=== PATIENT | male | born 1935 | race Caucasian/White ===

== ENCOUNTER 2018-07-25 17:09 | Emergency (ER) | payer OTHER ==
[~2018-07-25] VITALS: Ht 182.9 cm; Wt 90.7 kg
[~2018-07-25 17:09] MED LIST: AMLO10 PO; ASPI81CH; ATEN25; ATOR10 PO; CARV6.25; CARV6.25 PO; CLOP75 PO; DILT120 PO; ELIQUIS2.5 MG PO; FENO54; FERR325 PO; FURO20; FURO40 PO; GLIP10ER; HYDR10 PO; ISODIN10 PO; LOSA50 PO; METF500; METF500 PO; METO50 PO; NITR.4SL; Norco 5-325 Ta1 EACH PO; Omeprazole20 M1 PO; POTCHL10ER; SIMV80 PO; SPIR25 PO; TELM80; Valtrex1000 MG PO
[2018-07-25 17:38] LABS: BASOPHILS ABSOLUTE AUTO 0.07 K/mm3 (0.00-0.23); BASOPHILS PERCENT AUTO 1 % (0-2); EOSINOPHILS ABSOLUTE AUTO 0.65 K/mm3 (0.00-0.68); EOSINOPHILS PERCENT AUTO 9 % (0-6); Hematocrit 44.6 % (37.0-53.0); Hemoglobin 15.2 g/dL (13.5-17.5); IMMATURE GRAN ABSOLUTE AUTO 0.06 K/mm3 (0.00-0.10); IMMATURE GRAN PERCENT AUTO 1 % (0-1); LYMPHOCYTES ABSOLUTE AUTO 1.91 K/mm3 (0.84-5.20); LYMPHOCYTES PERCENT AUTO 26 % (21-46); MONOCYTES ABSOLUTE AUTO 0.42 K/mm3 (0.16-1.47); MONOCYTES PERCENT AUTO 6 % (4-13); Mean Corpuscular HGB 32.8 pg (26.0-34.0); Mean Corpuscular HGB Conc 34.1 g/dL (31.5-36.5); Mean Corpuscular Volume 96 fL (80-100); Mean Platelet Volume 10.4 fL (9.1-12.4); NEUTROPHILS ABSOLUTE AUTO 4.31 K/mm3 (1.96-9.15); NEUTROPHILS PERCENT AUTO 58 % (41-73); Platelet Count 166 K/mm3 (150-400); RDW Coefficient Variation 13.1 % (11.7-14.2); RDW Standard Deviation 46.5 fL (35.1-46.3); Red Blood Cell Count 4.64 M/mm3 (4.30-5.90); White Blood Cell Count 7.42 K/mm3 (4.00-11.30)
[2018-07-25 17:56] LABS: Albumin, Blood 3.6 g/dL (3.4-5.0); Bilirubin, Total 0.5 mg/dL (0.1-1.0); Bun/Creatinine Ratio 22.6 (12.0-20.0); Calcium, Blood 9.2 mg/dL (8.5-10.1); Creatinine, Blood 2.39 mg/dL (0.60-1.20); Globulin, Blood 3.5 g/dL (2.2-4.0); Potassium, Blood 4.3 mmol/L (3.5-5.5); Total Protein, Blood 7.1 g/dL (6.4-8.2)
[2018-07-25] MEDS ORDERED: GABA300 PO (19:17)
[2018-07-25] MEDS ORDERED: INSU100I6 (19:18)
[2018-07-25] MEDS ORDERED: ISODIN10 PO (19:19)
[2018-07-25] MEDS ORDERED: HEARTBURN RELI150 MG PO (19:20)
[2018-07-25] MEDS ORDERED: LIDO700A20 TOP (21:28)
== END 2018-07-25 22:04 | disposition home or self-care (01) ==
LOC: ER 17:09
PROVIDERS: Emergency Medicine
DX: E11.22 Type 2 diabetes mellitus with diabetic chronic kidney disease (principal); N18.9 Chronic kidney disease, unspecified; Z79.899 Other long term (current) drug therapy; I50.9 Heart failure, unspecified; F17.210 Nicotine dependence, cigarettes, uncomplicated
CPT/HCPCS: 36415; 74176; 80053; 83690; 85025; 96361; 96374; 96375; 99284-25; J2270; J2405; J7030

== ENCOUNTER 2018-12-25 11:00 | Emergency (ER) | payer OTHER ==
[~2018-12-25] VITALS: Ht 177.8 cm; Wt 90.7 kg
[~2018-12-25 11:00] MED LIST changes: -FERR325 PO; +FERSU300 PO; +GABA300 PO; +HEARTBURN RELI150 MG PO; +LIDO700A20 TOP; +NOVOLOG FL100 UNIT/1 SC
[2018-12-25 11:31] LABS: BASOPHILS ABSOLUTE AUTO 0.09 K/mm3 (0.00-0.23); BASOPHILS PERCENT AUTO 1 % (0-2); EOSINOPHILS ABSOLUTE AUTO 0.81 K/mm3 (0.00-0.68); EOSINOPHILS PERCENT AUTO 11 % (0-6); Hematocrit 41.1 % (37.0-53.0); Hemoglobin 13.7 g/dL (13.5-17.5); IMMATURE GRAN ABSOLUTE AUTO 0.08 K/mm3 (0.00-0.10); IMMATURE GRAN PERCENT AUTO 1 % (0-1); LYMPHOCYTES ABSOLUTE AUTO 1.77 K/mm3 (0.84-5.20); LYMPHOCYTES PERCENT AUTO 24 % (21-46); MONOCYTES PERCENT AUTO 8 % (4-13); Mean Corpuscular HGB 32.2 pg (26.0-34.0); Mean Corpuscular HGB Conc 33.3 g/dL (31.5-36.5); Mean Corpuscular Volume 97 fL (80-100); Mean Platelet Volume 10.7 fL (9.1-12.4); NEUTROPHILS ABSOLUTE AUTO 4.15 K/mm3 (1.96-9.15); NEUTROPHILS PERCENT AUTO 55 % (41-73); Platelet Count 165 K/mm3 (150-400); RDW Coefficient Variation 13.8 % (11.7-14.2); RDW Standard Deviation 48.6 fL (35.1-46.3); Red Blood Cell Count 4.26 M/mm3 (4.30-5.90)
[2018-12-25 11:50] LABS: Albumin, Blood 3.3 g/dL (3.4-5.0); Albumin/Globulin Ratio 0.9 (0.8-1.8); Bilirubin, Total 0.7 mg/dL (0.1-1.0); Bun/Creatinine Ratio 16.2 (12.0-20.0); Calcium, Blood 8.6 mg/dL (8.5-10.1); Creatinine, Blood 2.16 mg/dL (0.60-1.20); Globulin, Blood 3.5 g/dL (2.2-4.0); Potassium, Blood 4.5 mmol/L (3.5-5.5); Total Protein, Blood 6.8 g/dL (6.4-8.2)
[2018-12-25] MEDS ORDERED: ASPI81CH PO (13:01)
[2018-12-25] MEDS ORDERED: Vitamin D2000 UNIT PO (13:04)
[2018-12-25] MEDS ORDERED: INSULANPEN SC (13:07)
== END 2018-12-25 13:51 | disposition home or self-care (01) ==
LOC: ER 11:00
PROVIDERS: Emergency Medicine
DX: R55 Syncope and collapse (principal); E86.0 Dehydration; Z88.8 Allergy status to other drugs, medicaments and biological substances; Z79.899 Other long term (current) drug therapy; Z79.4 Long term (current) use of insulin; Z79.82 Long term (current) use of aspirin; I50.9 Heart failure, unspecified; J44.9 Chronic obstructive pulmonary disease, unspecified; E11.22 Type 2 diabetes mellitus with diabetic chronic kidney disease; N18.9 Chronic kidney disease, unspecified; F17.210 Nicotine dependence, cigarettes, uncomplicated
CPT/HCPCS: 80053; 85025; 93005; 93010; 99284-25

== ENCOUNTER 2019-06-16 07:08 | Emergency (ER) | payer OTHER ==
[~2019-06-16] VITALS: Ht 177.8 cm; Wt 90.7 kg
[~2019-06-16 07:08] MED LIST changes: +ASPI81CH PO; +INSULANPEN SC; +Vitamin D2000 UNIT PO
[2019-06-16 07:40] LABS: BASOPHILS ABSOLUTE AUTO 0.07 K/mm3 (0.00-0.23); BASOPHILS PERCENT AUTO 1 % (0-2); EOSINOPHILS ABSOLUTE AUTO 0.56 K/mm3 (0.00-0.68); EOSINOPHILS PERCENT AUTO 6 % (0-6); Hematocrit 40.5 % (37.0-53.0); Hemoglobin 13.5 g/dL (13.5-17.5); IMMATURE GRAN ABSOLUTE AUTO 0.04 K/mm3 (0.00-0.10); IMMATURE GRAN PERCENT AUTO 0 % (0-1); LYMPHOCYTES ABSOLUTE AUTO 1.91 K/mm3 (0.84-5.20); LYMPHOCYTES PERCENT AUTO 21 % (21-46); MONOCYTES ABSOLUTE AUTO 0.76 K/mm3 (0.16-1.47); MONOCYTES PERCENT AUTO 9 % (4-13); Mean Corpuscular HGB 32.2 pg (26.0-34.0); Mean Corpuscular HGB Conc 33.3 g/dL (31.5-36.5); Mean Corpuscular Volume 97 fL (80-100); Mean Platelet Volume 10.5 fL (9.1-12.4); NEUTROPHILS ABSOLUTE AUTO 5.64 K/mm3 (1.96-9.15); NEUTROPHILS PERCENT AUTO 63 % (41-73); Platelet Count 187 K/mm3 (150-400); RDW Coefficient Variation 13.1 % (11.7-14.2); RDW Standard Deviation 46.9 fL (35.1-46.3); Red Blood Cell Count 4.19 M/mm3 (4.30-5.90); White Blood Cell Count 8.98 K/mm3 (4.00-11.30)
[2019-06-16] MEDS ORDERED: PRAV20 PO (07:44)
[2019-06-16 08:03] LABS: Alanine Aminotransfer (ALT/SGP 17 U/L (12-78); Albumin, Blood 3.3 g/dL (3.4-5.0); Albumin/Globulin Ratio 0.9 (0.8-1.8); Alk Phos 64 U/L (50-136); Anion Gap 7 mmol/L (6-16); Aspartate Aminotrans (AST/SGOT 7 U/L (12-37); Bilirubin, Total 0.5 mg/dL (0.1-1.0); Blood Urea Nitrogen 41 mg/dL (8-24); CO2, Blood 24 mmol/L (21-32); Calcium, Blood 8.7 mg/dL (8.5-10.1); Chloride, Blood 106 mmol/L (98-108); Creatinine, Blood 2.05 mg/dL (0.60-1.20); Globulin, Blood 3.6 g/dL (2.2-4.0); Glomerular Filtration Rate 33 (60-); Glucose, Blood 357 mg/dL (70-99); Potassium, Blood 4.3 mmol/L (3.5-5.5); Sodium, Blood 137 mmol/L (136-145); Total Protein, Blood 6.9 g/dL (6.4-8.2); Troponin I <0.015 ng/mL (0.000-0.040)
[2019-06-16] MEDS ORDERED: BENZ100A PO (08:24)
[2019-06-16] MEDS ORDERED: Prednisone20 MG PO (08:24)
[2019-06-16] MEDS ORDERED: ALBU90OI INH (08:24)
== END 2019-06-16 09:00 | disposition home or self-care (01) ==
LOC: ER 07:08
PROVIDERS: Emergency Medicine
DX: J44.1 Chronic obstructive pulmonary disease with (acute) exacerbation (principal); E11.65 Type 2 diabetes mellitus with hyperglycemia; E11.22 Type 2 diabetes mellitus with diabetic chronic kidney disease; I13.0 Hypertensive heart and chronic kidney disease with heart failure and stage 1 through stage 4 chronic kidney disease, or unspecified chronic kidney disease; N18.9 Chronic kidney disease, unspecified; I50.9 Heart failure, unspecified; Z79.899 Other long term (current) drug therapy; Z88.8 Allergy status to other drugs, medicaments and biological substances; Z79.82 Long term (current) use of aspirin; F17.210 Nicotine dependence, cigarettes, uncomplicated
CPT/HCPCS: 36415; 71046; 80053; 83880; 84484; 85025; 93005; 93010; 94640; 99284-25; J7512

== ENCOUNTER 2020-04-14 13:43 | Inpatient (IN) | payer OTHER ==
[~2020-04-14] VITALS: Ht 177.8 cm; Wt 89.6 kg
[~2020-04-14 13:43] MED LIST changes: +ALBU90OI INH; -ASPI81CH PO; +Aspirin EC81 MG PO; +BENZ100A PO; -HYDR10 PO; +HYDRA25 PO; -NOVOLOG FL100 UNIT/1 SC; +NOVOLOG FL100 UNIT/3 SC; +PRAV20 PO; +Prednisone20 MG PO
[2020-04-14 14:14] LABS: BASOPHILS ABSOLUTE AUTO 0.11 K/mm3 (0.00-0.23); BASOPHILS PERCENT AUTO 1 % (0-2); EOSINOPHILS ABSOLUTE AUTO 0.48 K/mm3 (0.00-0.68); EOSINOPHILS PERCENT AUTO 4 % (0-6); Hematocrit 40.7 % (37.0-53.0); Hemoglobin 12.9 g/dL (13.5-17.5); IMMATURE GRAN PERCENT AUTO 1 % (0-1); LYMPHOCYTES ABSOLUTE AUTO 3.96 K/mm3 (0.84-5.20); LYMPHOCYTES PERCENT AUTO 35 % (21-46); MONOCYTES ABSOLUTE AUTO 0.64 K/mm3 (0.16-1.47); MONOCYTES PERCENT AUTO 6 % (4-13); Mean Corpuscular HGB 31.8 pg (26.0-34.0); Mean Corpuscular HGB Conc 31.7 g/dL (31.5-36.5); Mean Corpuscular Volume 100 fL (80-100); Mean Platelet Volume 10.7 fL (9.1-12.4); NEUTROPHILS ABSOLUTE AUTO 6.07 K/mm3 (1.96-9.15); NEUTROPHILS PERCENT AUTO 53 % (41-73); Platelet Count 198 K/mm3 (150-400); RDW Coefficient Variation 14.5 % (11.7-14.2); RDW Standard Deviation 53.5 fL (35.1-46.3); Red Blood Cell Count 4.06 M/mm3 (4.30-5.90); White Blood Cell Count 11.36 K/mm3 (4.00-11.30)
[2020-04-14 14:29] LABS: Albumin, Blood 3.4 g/dL (3.4-5.0); Bilirubin, Total 0.4 mg/dL (0.1-1.0); Bun/Creatinine Ratio 19.5 (12.0-20.0); Creatinine, Blood 2.1 mg/dL (0.60-1.20); Globulin, Blood 3.3 g/dL (2.2-4.0); International Normalized Ratio 0.96; Magnesium, Blood 2.1 mg/dL (1.6-2.4); Potassium, Blood 4.4 mmol/L (3.5-5.5); Prothrombin Time Results 10.3 Sec (9.7-11.5); Total Protein, Blood 6.7 g/dL (6.4-8.2); Troponin I 0.486 ng/mL (0.000-0.040)
[2020-04-14] MEDS ORDERED: ASCO500 PO (14:31)
[2020-04-14] MEDS ORDERED: CLOBET30L TOP (14:32)
[2020-04-14] MEDS ORDERED: Vitamin B-121000 MCG PO (14:32)
[2020-04-14] MEDS ORDERED: Ranitidine HCl150 M1 PO (14:34)
[2020-04-14] MEDS ORDERED: STIOLTO RESPIMAT4 G1 INH (14:34)
[2020-04-14] MEDS ORDERED: TRAM50 PO (14:35)
[2020-04-14] MEDS ORDERED: FERROUS GLUCON324 M2 PO (14:36)
[2020-04-14] MEDS ORDERED: DOCU100 PO (14:42)
[2020-04-14] MEDS ORDERED: GABA300 PO (14:43)
[2020-04-14] MEDS ORDERED: PRAV20 PO (14:45)
[2020-04-14] MEDS ORDERED: ARTIFICIAL TEAR15 M2 BOTHEYES (14:46)
--- NOTE | 2020-04-14 20:13 | NUR ---
STAFF WAS TRANSFERING PATIENT OFF THE SENIOR DIGITAL DESIGNER TABLE THE PATIENT BECAME UNRESPONSIVE AND NOTED TO BE IN VT ON THE MONITOR. SHOCKED X 1 @ 200 JOULES AND CONVERTED BACK TO SINUS RHYTHM AND BECAME RESPONSIVE QUICKLY. CONTINUED TRANSFER TO THE ICU. NOTIFIED AND MET US IN THE ICU. ICU STAFF NOTIFIED WE WERE TRANSPORTING AND JUST SHOCKED VT RHYTHM. THEY MET US IN THE [place]. TRANSFER OF CARE OCCURED IN ICU#5.
--- NOTE | 2020-04-14 20:30 | NUR ---
ASSUMED PT CARE PT TO ICU ROOM 5 FROM JEWELRY SORTER VIA [facility] AT 1951. MULT STAFF AT BEDSIDE, RESP THERAPIST AT BEDSIDE, DR ROSALES TO ROOM WITH PT ALSO. [facility] SHOCKS TO CORRECT RHYTHM (SHOCK GIVEN BY [facility]ENTER STAFF EN ROUTE TO ICU, SHOCK GIVEN AT 1999 120J, SHOCK GIVEN AT 2007 181J, SHOCK GIVEN AT 2023 143J). PT REMAINED ALERT AND ORIENTED. LIDO STARTED AT 2009 AT 1MG/MIN, MAGNESIUM STARTED, HEPARIN CONTINUES AT 12UNITS/KG/HR, AMIO CONTINUES AT 1MG/HR. NEW 18G PLACED TO RIGHT HAND, 16FR TEMP PACHECO PLACED, FAMILY AT BEDSIDE FOR UPDATE. PT BP PER ART LINE. RHYTHM INCONSISTANT.
[2020-04-14 20:56] LABS: PCO2 Arterial 40.6 mmHg (35-45); PO2 Arterial 81.1 mmHg (80-100); pH Blood Arterial 7.29 (7.35-7.45)
[2020-04-14 21:23] LABS: Source, Urine Catheter
[2020-04-14 21:27] LABS: Appearance, Urine Clear (Clear); Bilirubin, Urine Neg (Neg); Blood, Urine 1+ (Neg); Color, Urine Yellow (P-Yellow); Glucose Qualitative, Urine 4+ (Neg); Ketones, Urine Neg (Neg); Leukocyte Esterase, Urine Neg (Neg); Nitrite, Urine Neg (Neg); Protein, Urine 2+ (Neg); Urobilinogen, Urine NORM (Normal)
[2020-04-14 21:37] LABS: Squamous Epithelial Cells Few /hpf (Few); White Blood Cells, Urine 0-2 /hpf (0-5)
[2020-04-14 21:38] LABS: Bacteria Mod /hpf
--- NOTE | 2020-04-14 21:50 | NUR ---
PHARMACY UPDATE DUE TO APTT BEING >139 PHARMACIST WANTS HEPARIN HELD FOR 1 HR AND ANOTHER APTT DRAWN AT 2250.
--- NOTE | 2020-04-15 00:05 | NUR ---
PROVIDER VISIT DR WELSH AT BEDSIDE FOR EVAL. PLAN TO CONTINUE MONITORING RESP EFFORTS, GET CHEST XRAY IN AM. NO ADDITION TO LABS MADE.
[2020-04-15 02:29] LABS: BASOPHILS ABSOLUTE AUTO 0.03 K/mm3 (0.00-0.23); BASOPHILS PERCENT AUTO 0 % (0-2); EOSINOPHILS PERCENT AUTO 0 % (0-6); Hematocrit 38.8 % (37.0-53.0); Hemoglobin 12.1 g/dL (13.5-17.5); IMMATURE GRAN ABSOLUTE AUTO 0.08 K/mm3 (0.00-0.10); IMMATURE GRAN PERCENT AUTO 1 % (0-1); LYMPHOCYTES ABSOLUTE AUTO 0.84 K/mm3 (0.84-5.20); LYMPHOCYTES PERCENT AUTO 5 % (21-46); MONOCYTES ABSOLUTE AUTO 1.28 K/mm3 (0.16-1.47); MONOCYTES PERCENT AUTO 7 % (4-13); Mean Corpuscular HGB 31.3 pg (26.0-34.0); Mean Corpuscular HGB Conc 31.2 g/dL (31.5-36.5); Mean Corpuscular Volume 101 fL (80-100); Mean Platelet Volume 10.7 fL (9.1-12.4); NEUTROPHILS ABSOLUTE AUTO 15.18 K/mm3 (1.96-9.15); NEUTROPHILS PERCENT AUTO 87 % (41-73); Platelet Count 196 K/mm3 (150-400); RDW Coefficient Variation 14.8 % (11.7-14.2); RDW Standard Deviation 55.5 fL (35.1-46.3); Red Blood Cell Count 3.86 M/mm3 (4.30-5.90); White Blood Cell Count 17.41 K/mm3 (4.00-11.30)
[2020-04-15 03:00] LABS: Albumin, Blood 3.4 g/dL (3.4-5.0); Bilirubin, Total 0.8 mg/dL (0.1-1.0); Bun/Creatinine Ratio 18.8 (12.0-20.0); Calcium, Blood 8.9 mg/dL (8.5-10.1); Creatinine, Blood 2.45 mg/dL (0.60-1.20); Globulin, Blood 3.3 g/dL (2.2-4.0); Magnesium, Blood 3.1 mg/dL (1.6-2.4); Potassium, Blood 5.9 mmol/L (3.5-5.5); Total Protein, Blood 6.7 g/dL (6.4-8.2)
[2020-04-15 03:04] LABS: Troponin I 4.98 ng/mL (0.000-0.040)
[2020-04-15 05:10] LABS: PCO2 Arterial 48.7 mmHg (35-45); PO2 Arterial 61.7 mmHg (80-100); pH Blood Arterial 7.29 (7.35-7.45)
--- NOTE | 2020-04-15 06:00 | NUR ---
UPDATE PT HAD ANOTHER EPISODE OF RUST COLORED EMESIS INTO CPAP MASK. RESP CALLED, PT COUGHING AND LUNG SOUNDS MORE COARSE. PLAN TO CALL DR WELSH FOR ELECTIVE INTUBATION.
--- NOTE | 2020-04-15 06:45 | NUR ---
UPDATE DR WELSH, RESP THERAPIST AND MULT OTHER STAFF AT BEDSIDE FOR RSI.
--- NOTE | 2020-04-15 07:30 | NUR ---
SHIFT SUMMARY PT NOW SEDATED AND INTUBATED. DR KEATING USE BRONCHOSCOPE FOR INTUBATION DUE TO SMALL AIRWAY. PT GIVEN 4MG MIDOLAZAM, 80MG PROPOFOL PRIOR TO PROCEDURE. PT GIVEN ROCURONIUM 20MG AND A TOTAL OF 100MCG PHENYLEPHRINE. PT INTUBATED WITH 7.5, SECURED AT 23CM AT TEETH, POSITIVE COLOR CHANGE, BREATH SOUNDS WHEEZY AND COARSE, 16FR OG TUBE PLACED, STAT CHEST XRAY ORDERED. VERBAL ORDERS FOR LEVOPHED RECEIVED FROM DR WELSH. SATS >92%. INITIAL VENT SETTINGS 14/400/8/100. TEMP PROBE PACHECO DRAINING RUST COLORED URINE, PT AFEBRILE. ARTERIAL SHEATH TO RIGHT GROIN. SITE WNL, DRESSING REINFORCED DURING SHIFT. SKIN OVERALL INTACT, SKIN HAS CASA APPEARANCE. UPDATED ON CONDITION CHANGE. SHE WILL CALL TO UPDATE SON. BEDSIDE REPORT GIVEN TO CHRIS DIEGO.
--- NOTE | 2020-04-15 08:00 | NUR ---
ASSUMED CARE OF PT AT 0700. BEDSIDE REPORT FROM FRANK DIEGO. PT INTUBATED AT SHIFT CHANGE, SEE PREVIOUS RN NOTE. PT c 7.5 ETT, 23 AT LIP. VENT SETTINGS AC 14/450/8, CURRENTLY TITRATING FIO2 DOWN. LUNGS COARSE THROUGHOUT. RODRIGUEZ THICK SECRETIONS THROUGH ETT. PT PALE, COOL. PROPOFOL GTT STARTED AT 20 MCG/KG/MIN. LIDOCAINE GTT AT 2 MCG/MIN. SR c 1 DEGREE BLOCK, RATE 60-70'S. BP STABLE. RIGHT GROIN ARTERIAL SHEATH IN PLACE. DRESSING C/D/I. ATTEMPTED TO DOPPLER PEDAL PULSES, LEFT DORSAL PEDIS BY DOPPLER INTERMITTANTLY, UNABLE TO OBTAIN OTHER PEDAL PULSES. FEET COOL BILATERALLY, RIGHT FOOT DUSKY. WARM AT CALF. PACHECO IN PLACE, DRAINING TO GRAVITY, SMALL AMOUNT OF KARRI URINE c SEDIMENT OUT. WILL CONTINUE TO MONITOR.
[2020-04-15 08:28] LABS: Hematocrit 37.4 % (37.0-53.0); Hemoglobin 11.8 g/dL (13.5-17.5)
[2020-04-15 08:39] LABS: PCO2 Arterial 51.4 mmHg (35-45); PO2 Arterial 69.9 mmHg (80-100)
[2020-04-15 08:40] LABS: pH Blood Arterial 7.25 (7.35-7.45)
--- NOTE | 2020-04-15 09:30 | NUR ---
Pt resting in bed with his eyes closed and is intubated. Reviewed chart and discussed case with Bedside RN Yoon. Palliative Care will F/U when family arrives.
--- NOTE | 2020-04-15 11:25 | NUR ---
Echocardiogram completed
--- NOTE | 2020-04-15 11:30 | NUR ---
UPDATES CARDIOLOGY, LIDOCAINE GTT TO 1 MCG/MIN, SEE FLOW SHEET. REPEAT EKG AND RESULTS TO DR HERNÁNDEZ. TREND TROPONIN UNTIL TRENDING DOWN. ECHO COMPLETED, POOR EF -15%. SHEATH REMOVED, PRESSURE APPLIED. PLAN FOR REPEAT EKG AT 1800. NEPHROLOGY, TITRATE PRESSORS FOR MAP>75 FOR KIDNEY PERFUSION. 1L OF NS, LASIX 100 MG IV. TOOL RENTAL TECHNICIAN, CENTRAL LINE PLACED TO RIJ. CONTINUE LEVO GTT. REPEAT K. DR WELSH SPOKE c . CODE STATUS CHANGED TO DNR, NO ELECTRICITY.
[2020-04-15 13:43] LABS: Hematocrit 37.1 % (37.0-53.0); Hemoglobin 11.5 g/dL (13.5-17.5)
[2020-04-15 13:58] LABS: Potassium, Blood 5.9 mmol/L (3.5-5.5); Troponin I 5.79 ng/mL (0.000-0.040)
--- NOTE | 2020-04-15 15:22 | NUR ---
RHYTHM CHANGED NOTED. RATE 30'S c PVCS. EKG DONE, DR MCKEON NOTIFIED. INCREASED LIDOCAINE GTT TO 2 MCG/MIN, LEVOPHED 10 MCG/MIN. NO PERIPHERAL PULSES PALPABLE, CENTRAL PULSE BY DOPPLER. NOTIFIED.
--- NOTE | 2020-04-15 17:21 | NUR ---
SHIFT SUMMARY PT REMAINS INTUBATED AND SEDATED. VENT SETTINGS AC 14/450/8/40%. PROPOFOL GTT AT 35 MCG/KG/MIN. RASS -4. LEVOPHED GTT AT 12 MCG/MIN (TITRATED FOR MAP>75 FOR KIDNEY PERFUSION), LIDOCAINE 2 MCG/MIN. LR AT 200 ML/HR X 1 L. HYPOKALEMIC THIS SHIFT, MEDICATED ORDERED, REPEAT K 5.9, REDRAW AT 1999. CENTRAL LINE PLACE TO RIJ THIS SHIFT. RIGHT FEMORAL SHEATH REMOVED s COMPLICATIONS. RHYTHM CHANGE THIS SHIFT, SEE PREVIOUS NOTE AND EKG IN CHART. CENTRAL PULSES BY DOPPLER. NO PERIPHERAL PULSES PALPABLE. PT COOL, PALE. CODE STATUS CHANGED THIS SHIFT TO DNR, NO ELECTRICITY. DAUGHTER AT BEDSIDE. SPOKE c SIMBA FROM [facility] REGARDING COMFORT CARE. SONS FROM [place] CALLED TO CHECK ON PT. PLAN FOR THEM TO COME TOMORROW. REQUESTED THAT WE NOTIFY THEM c CHANGES IN PT STATUS. WILL CONTINUE TO MONITOR UNTIL REPORT TO ONCOMING NURSE.
--- NOTE | 2020-04-15 17:34 | NUR ---
Received call from Bedside RN Fabiana reporting daughter has arrived and would like to speak with Palliative Care. Pt resting in bed with eyes closed and is intubated. Daughter Leona at bedside. Listened as Leona expresses concerns that her dad (Pt) is suffering. Discussed the importance of family discussing Pt's wishes in his current condition. Leona states she does not think Pt would want his life prolonged and would want to focus on comfort and have a peaceful comfortable passing. Educated on comfort care philosophy with V/U made by Leona. She expresses concerns that Pt's son won't make it up from [place] in time. Leona reports plan to discuss goals of care further with Pt's spouse. Continued therapeutic listening and offered emotional support. Answered questions regarding the order of decision makers according to [place] statutes. Leona expresses appreciation of visit and reports no other concerns at this time. Palliative Care will remain available for supportive visits.
--- NOTE | 2020-04-15 19:30 | NUR ---
ASSUMED PT CARE BEDSIDE REPORT WITH CHRIS DIEGO. ASSUMED PT CARE. PT SEDATED AND INTUBATED. VENT SETTINGS AC14/450/8/40, SATS >90%. PT LUNG SOUNDS COARSE THROUGHOUT. PT HAS NEW CL TO RIGHT IJ, ALL MEDICATION INFUSIONS SWITCHED TO THIS ACCESS AT THIS TIME. PT HAS PROPOFOL INFUSING AT 35MCG/KG/MIN, LIDOCAINE INFUSING AT 2MG, LEVOPHED AT 12MCG/MIN, LR AT 200 (X1 BAG). SITE WNL, DRESSING C/D/I. PT STILL HAS PERIPHERAL IVS X3, 18G TI RIGHT HAND, 18G TO LEFT AC, 20G TO RIGHT AC. ALL SITES WNL. DRESSING TO LEFT AC CHANGED. BP STABLE ON LEVOPHED, WILL TITRATE APPROPRIATE. HR 60S 1ST DEGREE BLOCK. TEMP PROBE PACHECO DRAINING KARRI URINE, SEDIMENT NOTED. SKIN PALE, CASA TO LOWER EXTREMITIES. OG TO LIS, COFFEE GROUND SECRETIONS TO TUBE. SOFT WRIST RESTRAINTS SECURE. BED LOW. SEE FULL SHIFT ASSESSMENT.
[2020-04-15 19:36] LABS: Potassium, Blood 6.1 mmol/L (3.5-5.5)
[2020-04-15 22:40] LABS: Potassium, Blood 5.8 mmol/L (3.5-5.5)
[2020-04-16 02:23] LABS: Hematocrit 39.2 % (37.0-53.0); Mean Corpuscular HGB 31.2 pg (26.0-34.0); Mean Corpuscular HGB Conc 30.6 g/dL (31.5-36.5); Mean Corpuscular Volume 102 fL (80-100); Mean Platelet Volume 10.8 fL (9.1-12.4); NRBC ABSOLUTE 0.02 K/mm3 (0.00-0.02); NRBC Auto 0.1 /100 WBC (0.0-0.2); Platelet Count 217 K/mm3 (150-400); RDW Coefficient Variation 14.9 % (11.7-14.2); Red Blood Cell Count 3.85 M/mm3 (4.30-5.90); White Blood Cell Count 15.71 K/mm3 (4.00-11.30)
[2020-04-16 02:51] LABS: BAND PERCENT MAN 2 % (0-8); BASOPHILS PERCENT MAN 0 % (0-2); EOSINOPHILS PERCENT MAN 0 % (0-6); LYMPHOCYTES ABSOLUTE MAN 1.72 K/mm3 (0.84-5.20); LYMPHOCYTES PERCENT MAN 11 % (21-46); MONOCYTES ABSOLUTE MAN 1.57 K/mm3 (0.16-1.47); MONOCYTES PERCENT MAN 10 % (4-13); NEUTROPHILS ABSOLUTE MAN 12.41 K/mm3 (1.96-9.15); SEG NEUTROPHILS PERCENT MAN 77 % (41-73); TOTAL CELLS COUNTED 100
[2020-04-16 02:54] LABS: CPK Creatine Kinase 489 U/L (39-308); Magnesium, Blood 2.9 mg/dL (1.6-2.4); Uric Acid, Blood 10.3 mg/dL (3.5-7.2)
[2020-04-16 02:55] LABS: Anion Gap 7 mmol/L (6-16); Blood Urea Nitrogen 58 mg/dL (8-24); Bun/Creatinine Ratio 14.8 (12.0-20.0); CO2, Blood 24 mmol/L (21-32); Calcium, Blood 8.4 mg/dL (8.5-10.1); Chloride, Blood 104 mmol/L (98-108); Creatinine, Blood 3.93 mg/dL (0.60-1.20); Glomerular Filtration Rate 16 (60-); Glucose, Blood 367 mg/dL (70-99); Phosphorus, Blood 5.8 mg/dL (2.5-4.9); Potassium, Blood 5.5 mmol/L (3.5-5.5); Sodium, Blood 135 mmol/L (136-145)
--- NOTE | 2020-04-16 06:45 | NUR ---
SHIFT SUMMARY PT REMAINS SEDATED AND INTUBATED, VENT SETTINGS AC14/450/8/45%, SATS >90%. LUNG SOUNDS CONTINUE TO BE COARSE. SECRETIONS MINIMAL WITH SUCTIONING. OG TUBE TO LIS, DRAINAGE RUST COLORED WITH CLOTS. PT NOT ON ANY GI PREVENTION, WILL PASS ON TO DAYSHIFT TO ADDRESS WITH PROVIDER. PT BPS STABLE ON LEVO. CL TO RIGHT IJ WITH LEVOPHED INFUSING AT 16MCG, PROPOFOL INFUSING AT 35MCG, NS AT 10ML, LIDOCAINE INFUSING AT 2MG. PT HAS 18G TO LEFT AC, 18G TO RIGHT HAND AND 20G TO RIGHT AC. ALL SITES WNL, DRESSINGS C/D/I. TEMP PROBE PACHECO DRAINING SCANT KARRI COLORED URINE WITH SEDIMENT. PULSES PALPABLE TO BILATERAL WRISTS THIS AM, ABSENT TO RIGHT FOOT (PROVIDER AWARE), DOPPLER TO LEFT FOOT. PT GAG REFLEX PRESENT THIS AM, NOT SWALLOWING OR COUGHING. HR 60S 1ST DEGREE BLOCK WITH BIGEMNINY. TUBE ADVANCED TO 25CM AT TEETH DURING SHIFT BY RESP THERAPIST. SOFT WRIST RESTRAINTS SECURE. HOB ELEVATED. WILL REPORT TO ONCOMING RN.
--- NOTE | 2020-04-16 08:17 | NUR ---
ASSUMED CARE OF PT AT 0700 THIS AM. PT SEDATED ON PROPOFOL AT 35MCG FOR MECH VENT. LEVOPHED AT 16MCG TO KEEP MAP BETWEEN 70-75; WHICH IT IS. LIDOCAINE GTT AT 2MCG. PT IN BIGEMINY RHTHYM W RATE 70'S. PT BRETHING OVER VENT AT 17, NO COUGH, GAG, OR SWALLOW NOTED. PT NOT RESPONDING TO PAIN; WILL TITRATE PROPOFOL DOWN TOLERATED. DR AUSTIN AT BEDSIDE THIS AM. ABSENT PULSE TO RIGHT DP/TP. DOPPLER TO RIGHT POP. DOPPLER TO LEFT DP. DR AUSTIN AWARE OF ABSENT PULSE. 0800 DR HURLEY AT BEDSIDE; COMPLETE UPDATE GIVEN. SCANT PINK FLUID TO OGT. H&H STABLE; PLAVIX AND ASA ORDERED FOR TODAY. TROPONIN DRAWN.
--- NOTE | 2020-04-16 09:32 | NUR ---
DOPPLER COMPLETED. PRELIM; STENOSIS ABOVE RIGHT POP W SOME SMALL FLOW TO FOOT. PROPOFOL DECREASED TO 35MCG. 100CC OLD BLOOD SUCTIONED FROM OGT. PT'S SON ANI GIVEN UPDATE; HE IS ON HIS WAY FROM [place] WITH HIS BROTHER.
--- NOTE | 2020-04-16 09:44 | NUR ---
TROPONIN 7.910. PT HAS 150CC GASTRIC FLUID W OLD BLOOD; DR MOON NOTIFIED. WILL HOLD PLAVIX AND ASA FOR NOW AND CHECK WITH CARDIOLOGY TODAY.
--- NOTE | 2020-04-16 10:26 | NUR ---
DR MOON AT BEDSIDE. PT TO RECEIVE PLAVIX AND ASA DR CORONADO. LEVOPHED TO BE TITRATED FOR A GOAL MAP 60-65. LEVOPHED DECREASED TO 16MCG FROM 18MCG.
--- NOTE | 2020-04-16 11:09 | NUR ---
PT'S AND DAUGHTER AT BEDSIDE. BOTH FAMILY MEMBERS REQUEST THAT PT BE REMOVED FROM LIFE [employer]. PALLIATIVE CARE CALLED AND IS AT BEDSIDE FOR SUPPORTIVE CARE. DR MOON TO BE NOTIFIED.
--- NOTE | 2020-04-16 11:49 | NUR ---
DR MOON UPDATED; COMFORT CARE ORDERED. ORDERS PLACED TO EXTUBATE PT WHEN FAMILY READY. FAMILY REQUESTING THAT PT BE EXTUBATED NOW. PT'S SON'S CALLED TO GIVE UPDATE; NO ANSWER. PASTEROL CARE AND PALIATIVE CARE AT BEDSIDE.
--- NOTE | 2020-04-16 12:01 | NUR ---
PT EXTUBATED AT 1154. LEVOPHED AND LIDOCAINE TURNED OFF SHORTLY AFTER. DAUGHTER AT BEDSIDE W PASTORAL CARE AND PALIATIVE CARE.
--- NOTE | 2020-04-16 12:09 | NUR ---
PT AT 1205. DAUGHTER AT BEDSIDE W PASTORAL CARE AND PALLIATIVE CARE.
--- NOTE | 2020-04-16 13:24 | NUR ---
Spiritual care visit conducted. Upon receiving a request for spiritual care from Palliative Care RN Sonia Ba, I visit with family in the ICU waiting rm. Patient's spouse Lauren is overwhemled and speaks very little. Her daughter, Poornima, tells me that Lauren agrees with the decision to withdraw care but does not want to go back into the rm (for various reason). Poornima walks with me into patient's rm and I say a prayer and conduct a life review. Poornima steps out while patient is extubated, then comes back in and holds patient's hand as he expires at 1205. I go to the parking lot and notify Lauren that patient has . She grieves appropriately. Back in patient's rm I continue the life review with Poornima, say another prayer and help Poornima to the car by carrying patient's belongings.
--- NOTE | 2020-04-16 16:46 | NUR ---
After careful review of prognosis family decided to withdraw care. Supportive care to family. given assistance with funneral planning and VA benefits. Gave her contact information for survivor benefits. pt placed on comfort care family at bedside, chaplian support to pt and family. Will follow up with support.
== END 2020-04-16 12:05 | DRG 246 ==
LOC: ER 13:43 → ICUE 18:07 → ICUW 18:20 → ICUE 19:53
PROVIDERS: Emergency Medicine; Internal Medicine Critical Care Medicine; Internal Medicine Interventional Cardiology; Internal Medicine Nephrology; Student in an Organized Health Care Education/Training Program; ADMIT Internal Medicine
PROC: 027034Z Dilation of Coronary Artery, One Artery with Drug-eluting Intraluminal Device, Percutaneous Approach (ICD-10-PCS; 2020-04-14)
PROC: 4A023N7 Measurement of Cardiac Sampling and Pressure, Left Heart, Percutaneous Approach (ICD-10-PCS; 2020-04-14)
PROC: B2111ZZ Fluoroscopy of Multiple Coronary Arteries using Low Osmolar Contrast (ICD-10-PCS; 2020-04-14)
PROC: B2131ZZ Fluoroscopy of Multiple Coronary Artery Bypass Grafts using Low Osmolar Contrast (ICD-10-PCS; 2020-04-14)
PROC: 02HV33Z Insertion of Infusion Device into Superior Vena Cava, Percutaneous Approach (ICD-10-PCS; principal; 2020-04-15)
PROC: 3E043XZ Introduction of Vasopressor into Central Vein, Percutaneous Approach (ICD-10-PCS; 2020-04-15)
PROC: 0BH18EZ Insertion of Endotracheal Airway into Trachea, Via Natural or Artificial Opening Endoscopic (ICD-10-PCS; 2020-04-15)
PROC: 5A1945Z Respiratory Ventilation, 24-96 Consecutive Hours (ICD-10-PCS; 2020-04-15)
DX: I21.4 Non-ST elevation (NSTEMI) myocardial infarction (principal); I50.23 Acute on chronic systolic (congestive) heart failure; J69.0 Pneumonitis due to inhalation of food and vomit; N17.0 Acute kidney failure with tubular necrosis; N18.4 Chronic kidney disease, stage 4 (severe); I13.0 Hypertensive heart and chronic kidney disease with heart failure and stage 1 through stage 4 chronic kidney disease, or unspecified chronic kidney disease; I47.2 Ventricular tachycardia; Z51.5 Encounter for palliative care; J44.9 Chronic obstructive pulmonary disease, unspecified; Z79.82 Long term (current) use of aspirin; Z79.4 Long term (current) use of insulin; F17.210 Nicotine dependence, cigarettes, uncomplicated; Z95.1 Presence of aortocoronary bypass graft; E11.51 Type 2 diabetes mellitus with diabetic peripheral angiopathy without gangrene; E11.22 Type 2 diabetes mellitus with diabetic chronic kidney disease; D50.9 Iron deficiency anemia, unspecified; I25.110 Atherosclerotic heart disease of native coronary artery with unstable angina pectoris; E87.5 Hyperkalemia
CPT/HCPCS: 31500; 31720; 36415; 36556; 71045; 76937; 80053; 80069; 81001; 82271; 82330; 82374; 82435; 82550; 82803; 82947; 83735; 83880; 84132; 84295; 84484; 84550; 85007; 85014; 85018; 85025; 85027; 85347; 85610; 85730; 87070; 87086; 87205; 93005; 93010; 93455; 93926; 94002; 94003; 94640; 94660; 96365; 96366; 96368; 96375; 96376; 99152; 99153; 99291-25; 99292; A9270-GY; C1725; C1751; C1769; C1874; C1887; C1894; C8929; C9600; J0282; J0610; J0696; J1644; J1815; J1940; J2001; J2060; J2250; J2270; J2370; J2405; J2704; J3010; J3475; J7030; J7040; J7050; J7060; J7120; Q9957; Q9967